=== PATIENT | female | born 1945 | race Caucasian/White ===

== ENCOUNTER 2021-06-03 11:28 | Emergency (ER) | payer MEDICARE ==
[2021-06-03 12:05] LABS: Hemoglobin 13.7 g/dL (12.0-16.0); Mean Corpuscular HGB CONC 32.7 g/dL (32.0-36.0); Mean Corpuscular Hemoglobin 30.4 pg (27.0-31.0); Mean Platelet Volume 6.7 fL (7.4-10.4); Platelet Count 132 thou/uL (130-400); RBC Distribution Width 13.7 % (11.5-14.5); White Blood Cell (WBC) Count 13.4 thou/uL (4.8-10.8)
[2021-06-03 12:29] LABS: Band 20 % (5-11); Lymphocytes 8 % (21-51); MDiff Complete? YES; Monocytes 6 % (0-10); Neutrophil 63 % (42-75); Platelet Morphology Comment Appears Decreased; RBC Morphology Normal; Reactive Lymphocytes 3 % (0-10)
[2021-06-03 12:31] LABS: Bilirubin Moderate (Negative); Blood, Urine Negative (Negative); Clarity Clear (Clear); Glucose, Urine (Dipstick) 500 mg/dL (Negative); Ketone, Urine 80 mg/dL (Negative); Leukocyte Negative (Negative); Nitrite Negative (Negative); Protein, Urine (Dipstick) Negative (Neg-Trace); Specific Gravity, Urine 1.015 (1.005-1.030); Urobilinogen 0.2 mg/dL (Less than 2)
[2021-06-03 12:36] LABS: CKMB 0.7 ng/mL (0-6.6)
[2021-06-03 13:24] LABS: ALT (SGPT) 20 U/L (8-55); AST (SGOT) 26 U/L (5-34); Albumin 4.2 g/dL (3.4-4.8); Alkaline Phosphatase 57 U/L (40-110); Anion Gap 24 mmol/L (10-20); BUN (Urea Nitrogen) 22 mg/dL (9.8-20.1); Bilirubin, Total 1.1 mg/dL (0.2-1.2); Calc. Creatinine Clearance 0 mL/min (70-130); Calcium 9.1 mg/dL (7.8-10.44); Carbon Dioxide 15 mmol/L (23-31); Chloride 99 mmol/L (98-107); Globulin 3.1 g/dL (2.4-3.5); Glucose 214 mg/dL (83-110); Potassium 4.6 mmol/L (3.5-5.1); Protein, Total 7.3 g/dL (5.8-8.1); Sodium 133 mmol/L (136-145)
[2021-06-03] MEDS ORDERED: INSULIN REGULAR IN 0.9 % NACL 100 UNIT/100 ML BAG ONE (13:54)
[2021-06-03 14:23] LABS: Base Excess-Venous -6.3 mmol/L (-2.0 to 3.0); CO2 Tension (PvCO2) 31.6 mmHg (42.0-51.0); Calcium, Ionized 1.14 mmol/L (1.15-1.33); Chloride 105 mmol/L (98-107); Hemoglobin - Calc 13.5 g/dL (12.0-16.0); Potassium 4.7 mmol/L (3.5-5.1); Sodium 133 mmol/L (138-145)
[2021-06-03 16:16] LABS: SARS-CoV-2 NAA Rapid Test Not Detected (NotDetected)
== END 2021-06-03 15:39 | disposition short-term general hospital (02) ==
LOC: BURERS 11:28
DX: E11.10 Type 2 diabetes mellitus with ketoacidosis without coma (principal); R77.8 Other specified abnormalities of plasma proteins; M54.9 Dorsalgia, unspecified; R19.7 Diarrhea, unspecified; Z20.822 Contact with and (suspected) exposure to COVID-19; Z79.4 Long term (current) use of insulin
CPT/HCPCS: 71045; 80053; 81003; 82330; 82435; 82553; 82803; 82962; 83605; 83880; 84132; 84295; 84484; 85014; 85025; 93005; 94760; U0002; 36416; 96365; 96366